=== PATIENT | male | born 1980 | race Caucasian/White ===

== ENCOUNTER 2020-08-05 08:52 | Outpatient (CLI) | payer OTHER, SELFPAY ==
--- NOTE | ~2020-08-05 | MR_ITS ---
EXAMINATION: MR elbow LT wo con DATE: 08/05/2020 09:31 INDICATION: Left elbow pain TECHNIQUE: Magnetic resonance imaging (MRI) of the left elbow was performed without intravenous contr ast. Sequences included coronal, axial, and sagittal PD-weighted FS FSE and coronal, axial, and sagit freddy PD-weighted FSE. COMPARISON: None FINDINGS: Osseous/other: Normal alignment. Normal marrow signal with no marrow edema, fracture, osteochondral lesion or abnor mal marrow replacing process. Mild osteoarthritis at the left elbow with partial thickness cartilage loss resulting in mild nonuniform joint space narrowing at the proximal radioulnar and ulnar trochlea r articulations. Tendons: Triceps, biceps brachii and brachialis tendons are normal. Common flexor tendon wad is normal. There is mild tendinopathy with tiny partial-thickness tear at the lateral epicondylar origin of the commo n extensor tendon wad. Ligaments: The medial and lateral collateral ligament complexes are normal. Cubital tunnel: Cubital tunnel is unremarkable with normal signal and caliber of the ulnar nerve. Fluid: Physiologic amount of fluid the elbow joint. IMPRESSION: 1. Mild tendinopathy and tiny partial-thickness tear at the lateral epicondylar origin of the common extensor tendon wad. 2. Mild osteoarthritis at the left elbow. Reviewed, dictated and finalized at location B.
== END 2020-08-05 08:53 ==
PROVIDERS: PCP Family Medicine; Visit Provider Nurse Practitioner Psychiatric/Mental Health
DX: M19.022 Primary osteoarthritis, left elbow (principal)
CPT/HCPCS: 73221